=== PATIENT | female | born 1960 | race Caucasian/White ===

== ENCOUNTER 2018-08-01 09:16 | Emergency (ER) | payer OTHER ==
--- NOTE | 2018-08-01 09:29 | EDPHY ---
General Time Seen by Provider: 08/01/18 09:26 Narrative: CLINICAL IMPRESSION: Alcohol withdrawal, chest pain ASSESSMENT/PLAN: Patient is a 58-year-old female with no significant medical history, takes no medications presents to the emergency department with a constellation of symptoms to include possible alcohol withdrawal, shaking, anxiety, right jaw, right arm, right leg tingling sensation as well as intermittent left-sided chest pain that has been ongoing for the last month. Patient reports a longstanding history of alcohol abuse for the last 10 years, has escalated over the last 1-2 years ( a bottle of wine per night). Patient is afebrile, she is tremulous with tongue fasciculations, neurological exam is otherwise nonfocal. She has had no recent head trauma, no findings to suggest intracranial hemorrhage, stroke, Wernickies or acute encephalopathy. Heart rate was noted to be 138 on arrival, ECG revealed sinus tachycardia without evidence of ischemia. Troponin negative, low suspicion for ACS as symptoms have been ongoing and intermittent for the last month. Patient with a longstanding history of alcohol abuse, trying to wean herself yesterday for the 1st time. No history of withdrawal or seizure withdrawal. CBC revealed no evidence of leukocytosis, no findings to suggest infectious process. Basic metabolic panel with mild abnormalities including mild hyponatremia, mildly elevated bicarb; she has had no vomiting, I do not suspect significant volume loss or dehydration and no findings to suggest DKA. Potassium and magnesium normal. Liver function panel with transaminitis consistent with longstanding alcohol abuse. Lipase was normal, negative. U tox negative and alcohol 0. History and physical examination is consistent with alcohol withdrawal. Patient was evaluated by case management, offered inpatient alcohol rehabilitation which patient accepted. She was given 2 L of normal saline and 3 mg of Ativan in the emergency department with improvement of her symptoms. She was accepted at [facility] and will be transferred by [facility] ambulance. On repeat examination and prior to transfer of care the patient reports that she is feeling better, she had an improvement of her heart rate down into the low 100s and her neurological exam remained grossly normal. Patient continued to have elevated blood pressures however no evidence of hypertensive urgency or emergency. I suspect secondary to acute alcohol withdrawal. Patient will be admitted to Dr. Isaac Warren at [facility]. DIFFERENTIAL DX: Differential diagnosis including but not limited to and in no particular order alcohol withdrawal, stroke, intracranial hemorrhage, radiculopathy, encephalopathy, DTs, electrolyte abnormality, ACS ED COURSE: 0940: Case discussed with Dr. Fontenot 1000: Troponin 0. ECG reviewed by myself and Dr. Fontenot which reveals sinus tachycardia at a rate of 105. No evidence of ischemia. 1023: On repeat examination the patient reports she is feeling much better, heart rate is 101. She is no longer tremulous and tongue fasciculations have subsided. We discussed alcohol rehabilitation center as option for detox, she would like to proceed here. 1135: Patient has been accepted to [facility], had a long discussion with patient regarding benefits of inpatient alcohol rehabilitation. She is still tachycardic at 1:17 a.m., mild tremor. Would like to discuss with her family. 1205: Patient is agreeable for transfer to [facility] for inpatient alcohol rehabilitation. Patient will be transferred by S. 1311: On repeat examination the patient is much more comfortable appearing, heart rate is 104 and her neurological exam is grossly normal without focal deficit. She reports feeling much better. CHIEF COMPLAINT: Right jaw, arm and leg tingling as well as intermittent left- sided chest pain HPI: Patient is a 58-year-old female with no significant medical history, takes no medications presents to the emergency department with a constellation of symptoms to include possible alcohol withdrawal, shaking, anxiety, right jaw, right arm, right leg tingling sensation as well as intermittent left-sided chest pain that has been ongoing for the last month. Patient reports a longstanding history of alcohol abuse for the last 10 years, has escalated over the last 1-2 years. She drinks approximately 1 bottle of wine per night. Yesterday she was trying to decrease the amount she was drinking, had 2-3 glasses and woke up this morning feeling very shaky and generally unwell. She also complains of right arm tingling, right medial lower leg tingling and right jaw tingling sensation that started about 1-2 weeks ago. 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 She has had intermittent tingling in the mid right upper arm, several days later noticed the same sensation in her right lower leg and then yesterday felt like she was having some tingling in her right jaw. In regards to her chest pain, she describes it as left-sided, lasts a brief period of time and is intermittent. She does not believe that it is reproducible. She denies any chest pain at this time. There has been no radiation, associated nausea, vomiting or diaphoresis. She has had no headache, dizziness, visual changes, weakness or ataxia. She denies any neck or back pain. She has had no associated shortness of breath or abdominal pain. She denies any recent fever or other illness. No history of alcohol withdrawal or withdrawal seizures. PMH: Denies Family History: Noncontributory Social History: Alcohol abuse, denies illicit drug use or cigarette smoking. REVIEW OF SYSTEMS: All other systems negative Constitutional: No fever, no chills, appetite change. Eyes: No discharge, vision change ENT: No sore throat, congestion, ear pain. Cardiovascular: Chest pain. No palpitations. Respiratory: No cough, no shortness of breath. Gastrointestinal: No abdominal pain, no vomiting, diarrhea. Genitourinary: No hematuria, dysuria, flank pain, pelvic pain. Musculoskeletal: Tingling of right arm and right leg. No back pain, joint swelling, joint pain, myalgias. Skin: No rashes, color change. Neurological: Shaking. No headache, dizziness, weakness. PHYSICAL EXAM: General Appearance: Patient is well-developed, she is tired appearing and shaky. HENT: Normocephalic, atraumatic. Bilateral external ears are normal. Bilateral tympanic membranes are normal with pearly robin reflex. Nares are clear, mucosa is pink. Oropharynx is clear, mucosa is mildly dry, uvula is midline. Tongue fasciculations are present. There is no tonsillar enlargement or exudate. The dentition is normal. Eyes: PERRLA, no acute vision change, nystagmus, swelling, discharge, pain or photosensitivity. Conjunctiva pink, no pallor or injection. Neck: Supple, nontender, no lymphadenopathy, no midline pain, FROM, no meningismus. Respiratory: There are no retractions, lungs are clear to auscultation. Cardiac: Tachycardic, no murmurs or gallops. Gastrointestinal: Abdomen is soft, nontender, bowel sounds normal, no masses/ hernia, no rigidity, guarding or focal peritoneal findings. Neurological: MENTAL STATUS: Patient is alert and oriented to person, place, time, and situation. Recent and remote memory are intact. Attention and concentration are normal. Found knowledge is appropriate to level of education. Mood and affect normal. SPEECH: Language including naming, repetition, comprehension, and spontaneous speech are normal. No dysarthria or dysphagia. CRANIAL NERVES: II: Visual ferreira are full to confrontation. Vision is grossly intact. III, IV, : Pupils are equal, round, reactive to light. Extraocular eye movements are full and without nystagmus. V: Facial sensation is intact to touch symmetrically in all 3 divisions. VII: Face is symmetric at rest with no asymmetry of grimace or evidence of facial weakness. VIII: Hearing is intact bilaterally to finger rub. IX, X: Palate is midline and elevates symmetrically with intact cough/gag. XI: Sternocleidomastoid and trapezius strength is normal. XII: Tongue protrudes midline without atrophy; fasciculations are present. MOTOR: Normal bulk and tone symmetrically in the upper and lower extremities. Upper extremities: shoulder abduction, elbow flexion, elbow extension, flexion of fingers and finger abduction strength 5/5 bilaterally. Lower extremities: hip flexion, knee flexion and extension, plantar and dorsiflexion of foot, and great toe extension strength 5/5 bilaterally. No pronator drift. SENSORY: Sensation is intact to light touch and symmetric in the UE's in LE's bilaterally. Romberg is negative. COORDINATION: Fine motor and rapid alternating movements are normal. Finger to nose is normal bilaterally. [id number] is normal bilaterally. No abnormal movements noted. Bilateral tremor at rest and with action. GAIT/STATION: Casual, straightforward gait is normal. Patient can walk on toes and on heels. No gait instability. Skin: Right forearm with examined this changes and scabbing. No surrounding erythema, induration or purulence. Warm, dry, no nodules on palpation. Musculoskeletal: Extremities are symmetrical, full range of motion, no tenderness, deformity, swelling, or erythema. Psychiatric: Patient is oriented X 3, there is no agitation. MEDICAL DECISION MAKING: Patient was seen independently. Secondary supervising physician at time of evaluation was Dr. Fontenot, he did not evaluate this patient however we discussed case and plan of care. Diagnosis: Right-sided Tingling sensation, chest pain, alcohol withdrawal. New , requires workup Summary: See Assessment and Plan for summary of ED visit Clinical lab tests: ordered / reviewed. Independent visualization of images, tracing, or specimens: Yes. Decision to obtain medical records or history from someone other than the patient: No Review / Summarize previous medical records: Yes Discussed patient with another provider: Yes, Dr. Fontenot Patient Progress: Stable, transfer. - History Smoking Status: Never smoked - Objective Vital Signs: Initial Vital Signs Temperature (C) 36.4 C 08/01/18 09:21 Heart Rate 139 H 08/01/18 09:21 Respiratory Rate 20 08/01/18 09:21 Blood Pressure 198/113 H 08/01/18 09:21 O2 Sat (%) 98 08/01/18 09:21 O2 Delivery Mode Room Air Allergies/Adverse Reactions: No Known Allergies Allergy (Unverified 08/01/18 09:20) Home Medications: Medication Instructions Recorded NK [No Known Home Meds] 08/01/18 Laboratory Results: Laboratory Results 08/01/18 09:47 08/01/18 09:47 08/01/18 08/01/18 08/01/18 11:00 09:49 09:47 WBC RBC Hgb Hct MCV MCH MCHC RDW Plt Count MPV Neut % (Auto) Lymph % (Auto) [place] % (Auto) Eos % (Auto) Baso % (Auto) Nucleat RBC Rel Count Absolute Neuts (auto) Absolute Lymphs (auto) Absolute Monos (auto) Absolute Eos (auto) Absolute Basos (auto) Absolute Nucleated RBC Immature Gran % Immature Gran # Sodium Potassium Chloride Carbon Dioxide Anion Gap BUN Creatinine Estimated GFR Glucose Calcium Magnesium Total Bilirubin Conjugated Bilirubin Unconjugated Bilirubin AST ALT Alkaline Phosphatase POC Troponin I 0.00 ng/mL ng/mL (0.00-0.08) Total Protein Albumin Lipase Beta HCG, Qual Urine Opiates Screen NEGATIVE (NEGATIVE) Urine Barbiturates NEGATIVE (NEGATIVE) Ur Phencyclidine Scrn NEGATIVE (NEGATIVE) Ur Amphetamine Screen NEGATIVE (NEGATIVE) U Benzodiazepines Scrn NEGATIVE (NEGATIVE) Urine Cocaine Screen NEGATIVE (NEGATIVE) U Marijuana (THC) Screen NEGATIVE (NEGATIVE) Ethyl Alcohol < 10 mg/dL mg/dL (0-10) 08/01/18 08/01/18 08/01/18 09:47 09:47 09:47 WBC 4.96 10^3/uL 10^3/uL (3.80-9.50) RBC 4.54 10^6/uL 10^6/uL (4.18-5.33) Hgb 15.3 g/dL g/dL (12.6-16.3) Hct 44.1 % % (38.0-47.0) MCV 97.1 fL fL (81.5-99.8) MCH 33.7 pg pg (27.9-34.1) MCHC 34.7 g/dL g/dL (32.4-36.7) RDW 11.5 % % (11.5-15.2) Plt Count 207 10^3/uL 10^3/uL (150-400) MPV 9.7 fL fL (8.7-11.7) Neut % (Auto) 70.8 % % (39.3-74.2) Lymph % (Auto) 16.9 % % (15.0-45.0) [place] % (Auto) 11.7 % % (4.5-13.0) Eos % (Auto) 0.2 % L % (0.6-7.6) Baso % (Auto) 0.2 % L % (0.3-1.7) Nucleat RBC Rel Count 0.0 % % (0.0-0.2) Absolute Neuts (auto) 3.51 10^3/uL 10^3/uL (1.70-6.50) Absolute Lymphs (auto) 0.84 10^3/uL L 10^3/uL (1.00-3.00) Absolute Monos (auto) 0.58 10^3/uL 10^3/uL (0.30-0.80) Absolute Eos (auto) 0.01 10^3/uL L 10^3/uL (0.03-0.40) Absolute Basos (auto) 0.01 10^3/uL L 10^3/uL (0.02-0.10) Absolute Nucleated RBC 0.00 10^3/uL 10^3/uL (0-0.01) Immature Gran % 0.2 % % (0.0-1.1) Immature Gran # 0.01 10^3/uL 10^3/uL (0.00-0.10) Sodium 132 mEq/L L mEq/L (135-145) Potassium 3.6 mEq/L mEq/L (3.5-5.2) Chloride 95 mEq/L L mEq/L (97-110) Carbon Dioxide 20 mEq/l L mEq/l (22-31) Anion Gap 17 mEq/L H mEq/L (6-14) BUN 9 mg/dL mg/dL (7-23) Creatinine 0.6 mg/dL mg/dL (0.6-1.0) Estimated GFR > 60 Glucose 120 mg/dL H mg/dL (70-100) Calcium 9.5 mg/dL mg/dL (8.5-10.4) Magnesium 1.6 mg/dL mg/dL (1.6-2.3) Total Bilirubin 2.3 mg/dL H mg/dL (0.1-1.4) Conjugated Bilirubin 0.6 mg/dL H mg/dL (0.0-0.5) Unconjugated Bilirubin 1.7 mg/dL H mg/dL (0.0-1.1) AST 281 IU/L H IU/L (14-46) ALT 304 IU/L H IU/L (9-52) Alkaline Phosphatase 108 IU/L IU/L (38-126) POC Troponin I Total Protein 8.5 g/dL H g/dL (6.3-8.2) Albumin 5.0 g/dL g/dL (3.5-5.0) Lipase 131 IU/L IU/L (23-300) Beta HCG, Qual NEGATIVE Urine Opiates Screen Urine Barbiturates Ur Phencyclidine Scrn Ur Amphetamine Screen U Benzodiazepines Scrn Urine Cocaine Screen U Marijuana (THC) Screen Ethyl Alcohol Medications Given: Discontinued Medications Sodium Chloride (Ns) 1,000 mls @ 0 mls/hr IV ONCE ONE PRN Reason: Wide Open Stop: 08/01/18 09:44 Last Admin: 08/01/18 10:03 Dose: 1,000 mls Sodium Chloride (Ns) 1,000 mls @ 0 mls/hr IV ONCE ONE PRN Reason: Wide Open Stop: 08/01/18 11:38 Last Admin: 08/01/18 11:48 Dose: 1,000 mls Lorazepam (Ativan Injection) 2 mg IVP EDNOW ONE Stop: 08/01/18 09:44 Last Admin: 08/01/18 10:06 Dose: 2 mg Lorazepam (Ativan Injection) 1 mg IVP EDNOW ONE Stop: 08/01/18 11:38 Last Admin: 08/01/18 11:48 Dose: 1 mg Point of Care Test Results: Chemistry 08/01/18 09:49 POC Troponin I 0.00 ng/mL ng/mL (0.00-0.08) Departure - Departure Clinical Impression: Alcohol abuse Alcohol withdrawal Qualifiers: Complication of substance-induced condition: uncomplicated Qualified Code(s): F10.230 - Alcohol dependence with withdrawal, uncomplicated Chest pain Qualifiers: Chest pain type: unspecified Qualified Code(s): R07.9 - Chest pain, unspecified Condition: Good Instructions: Alcohol Withdrawal (ED) Additional Instructions: DISCHARGE INSTRUCTIONS FROM YOUR DOCTOR Thank you for visiting our emergency department today. Please keep in mind that discharge from the emergency department does not mean that there is nothing wrong - it simply means that we have not identified an emergency condition that requires further evaluation or treatment in the hospital. You should always plan to follow up with primary care for re-evaluation of your condition in the next 1-2 days. 1. Based upon the testing done in the Emergency Department today we see no evidence of a heart attack. 2. We are unable to fully exclude coronary artery disease based upon the testing available in the Emergency Department. 3. For this reason, we would like you to be seen by cardiology for consideration of additional testing within the next 3 days. 4. Please contact the stem threshing machine operator you have been referred to schedule this appointment as soon as possible. Their offices are typically open from 8:30am- 5pm M-F. 5. Please return to the Emergency Department immediately for any recurrent chest pain, difficulty breathing or other concerns. People present with illnesses and injuries in different ways, and it is always possible that we have missed something. You may always return for re-evaluation if symptoms worsen or if they are not improving or if you develop new/different symptoms. Again, thank you for choosing our emergency department. We hope that you feel better. Referrals: Jovita Salas MD [Primary Care Provider] - 1-2 days without fail
[2018-08-01] MEDS ORDERED: LORazepam 2 MG/ML INJ IVP ONE ×2 (09:43→11:37)
[2018-08-01] MEDS ORDERED: NS 1,000 ML IV ONE ×2 (09:43→11:37)
[2018-08-01 09:57] LABS: PLATELET COUNT 207 10^3/uL (150-400)
--- NOTE | 2018-08-01 10:04 | CPEKG ---
Test Reason : OPEN Blood Pressure : / mmHG Vent. Rate : 105 BPM Atrial Rate : 106 BPM P-R Int : 180 ms QRS Dur : 080 ms QT Int : 360 ms P-R-T Axes : 072 017 022 degrees QTc Int : 476 ms Sinus tachycardia Confirmed by Isidro Pepe ([id number]) on 08/01/2018 10:03:57 AM Referred By: ISIDRO PEPE Confirmed By:Isidro Pepe
[2018-08-01 15:59] VITALS: BP 160/104
--- NOTE | 2018-08-01 17:28 | ASMTCMCOM ---
CM Note CM Note Notes: Requested to speak to patient about ETOH abuse treatment options. Pt states she has drank 4-5 glasses of wine every day for the past 10 years. CM spoke w/pt and ED Provider about detox options and pt is open to going to [facility]. CM sent referral via [employer] and called [facility] ([phone]) and spoke w/Komal. Komal states [facility] does accept pt's insurance and they do have beds available on their Chemical Dependency Unit. Additional labs were ordered and results faxed to [facility]. Komal called back and stated pt was accepted to their CDU as a direct admit; accepting MD is Dr Guicho Van. ED RN completed EMTALA. ED RN called and gave RN report to [facility] RN. ED Provider feels pt should be transported by [facility]; transport arranged by CM. Spoke w/pt and her daughter Alla at bedside and pt had questions re: insurance benefits. CM called [facility] and spoke w/Puja in the billing department and Puja said she would go over benefits and estimated costs with the pt. Pt provided Puja's direct # and called and spoke with her. Pt still agreeable to transferring to [facility]. CM available for further assistance if needed. Date Signed: 08/01/2018 05:27 PM Electronically Signed By:Kesha Hameed, ANAHI
--- NOTE | 2018-08-01 17:32 | ASDISCHSUM ---
Discharge Information Plan Status:Substance Abuse Referrals Medically Cleared to Leave: Discharge Date:08/01/2018 03:59 PM CM D/C Disposition:Other Psych, Not Sonal ADT D/C Disposition:Other Psych, Not Sonal Projected Discharge Date:08/01/2018 12:00 PM Transportation at D/C:ALS/BLS Discharge Delay Reason: Follow-Up Date:08/01/2018 12:00 PM Discharge Slot: Final Diagnosis: Placement Information Referral Type:Psychiatric Hospital or Unit Referral ID:[id number] Provider Name:[facility] Address 1:[address] Address 2: City:[place] Selection Factors: State:[place] Patient Contact Information Contact Name:TANJALOUISYARA Relationship: Address:[address] City:[place] Alternate Phone: State/Zip Code:[place] [address] Email: Financial Information Financial Class:HMO and PPO Plans Primary Plan Desc:[employer] Primary Plan Number:[id number] Secondary Plan Desc: Secondary Plan Number: Assessment Information [facility] Progress Note CM Note CM Note Notes: Requested to speak to patient about ETOH abuse treatment options. Pt states she has drank 4-5 glasses of wine every day for the past 10 years. CM spoke w/pt and ED Provider about detox options and pt is open to going to [facility]. MONIKA sent referral via [employer] and called [facility] ([phone]) and spoke w/Komal. Komal states does accept pt's insurance and they do have beds available on their Chemical Dependency Unit. Additional labs were ordered and results faxed to . Komal called back and stated pt was accepted to their CDU as a direct admit; accepting MD is Dr Guicho Van. ED RN completed EMTALA. ED RN called and gave RN report to [facility] RN. ED Provider feels pt should be transported by [facility]; transport arranged by CM. Spoke w/pt and her daughter Alla at bedside and pt had questions re: insurance benefits. CM called [facility] and spoke w/Puja in the billing department and Puja said she would go over benefits and estimated costs with the pt. Pt provided Puja's direct # and called and spoke with her. Pt still agreeable to transferring to . CM available for further assistance if needed. Date Signed: 08/01/2018 05:27 PM Electronically Signed By:Kesha Hameed RN Intervention Information Intervention Type:Substance Abuse Treatment Date of Service:08/01/2018 05:28 PM Patient Type:Emergency Room Staff Member:ANAHI Hameed, Kesha Hours:1 Discipline:Clinical Courier Severity: Comment:
== END 2018-08-01 15:59 ==
DX: F10.230 Alcohol dependence with withdrawal, uncomplicated (principal); R07.9 Chest pain, unspecified; E86.9 Volume depletion, unspecified
CPT/HCPCS: 80305; 84484-ER; 96374; G0480; J2060